=== PATIENT | female | born 1950 | race Caucasian/White ===

== ENCOUNTER 2017-03-20 11:49 | Emergency (ER) | payer MEDICARE ==
--- NOTE | 2017-03-25 16:13 | ER ---
ADMIT: 03/20/2017 RM/LOC: ER [facility] MR#: [id number] [address] [id number] CASE, ANTON Turner [address] [place] [address] Emergency Room Report SEX: F AGE: 67 : 1950 DATE: 03/20/2017 ADDENDUM: CHIEF COMPLAINT: Left ankle pain. HISTORY OF PRESENT ILLNESS: This 67-year-old female was going on one of her walks. She tripped and twisted her left ankle. She does have a distal lateral malleoli fracture. I did place her in posterior splint. I sent her home with tramadol for pain. Also given her crutches because it is very painful for her to try to bear any kind weight, having her followup with the ortho on Wednesday. CLINICAL IMPRESSION: Closed nondisplaced distal fibular fracture. KIRA Conway / Pantera Vega MD / pradipl JOB #: [id number] CC: Pantera Vega MD, Attending Physician Jordin Sweeney MD, Family Physician
== END 2017-03-20 13:35 | disposition home or self-care (01) ==
LOC: ER 11:49
PROC: 2W3MX1Z Immobilization of Left Lower Extremity using Splint (ICD-10-PCS; principal; 2017-03-20)
DX: S82.832A Other fracture of upper and lower end of left fibula, initial encounter for closed fracture (principal); X50.1XXA Overexertion from prolonged static or awkward postures, initial encounter; Y92.410 Unspecified street and highway as the place of occurrence of the external cause